=== PATIENT | male | born 1945 | race Caucasian/White ===

== ENCOUNTER → 2017-07-13 | Outpatient (CLI) | payer MEDICARE, BC ==
[~2017-07-13] VITALS: Ht 167.6 cm; Wt 81.4 kg
[~2017-07-13] MED LIST: ALPR.5 PO; ALTA5CAP4 PO; ASPI-516 PO; CARV12.5 PO; CENTCHW4 PO; CHLORHEXIDINE GLUCONATE 2 % 1 PACK (2 CLOTHS) TOPICAL PRN; CLON0.1T PO; DEXTROSE 5%-LACTATED RING INJ 1,000 ML IV SCH; DONE5TAB7 PO; EZET10 PO; FURO1TAB60 PO; INSULIN HUMAN REGULAR 1,000 UNITS/10 ML VIAL SQ PRN; LACTATED RINGER'S 1000 ML IV PRN; METOPROLOL TARTRATE 25 MG TAB PO PRN; MIRA50TA PO; OXYC1SOL5 PO; POVIDONE IODINE 5% (ANTISEPSIS KIT) 4 APPLICATIONS EACH NARE PRN; PRAV10TA PO; PRIL20TA2 PO; RESP: ALBUTEROL 2.5 MG/3 ML NEB (PRN) ONE; SODIUM CHLORID 0.9% 500 ML IV PRN; SPIR25 PO; ZANT150T2 PO
--- NOTE | 2017-07-13 11:30 | GIPROC ---
[facility] [address] [facility]. [facility], [address] EGD PROCEDURE REPORT EXAM DATE: 07/13/2017 PATIENT NAME: William Coats MR #: [id number] BIRTHDATE: 1945 ATTENDING: Danna Anton MD ORDER #: [id number] POLITICAL ORGANIZER: J Carlos See and Cristina Guido STATUS: outpatient INDICATIONS: The patient is a 72 yr old male here for an EGD due to diarrhea, dyspepsia PROCEDURE PERFORMED: EGD w/ biopsy MEDICATIONS: None and Per Anesthesia. TOPICAL ANESTHETIC: none CONSENT: The patient understands the risks and benefits of the procedure and understands that these risks include, but are not limited to: sedation, allergic reaction, infection, perforation and/or bleeding. Alternative means of evaluation and treatment include, among others: physical exam, x-rays, and/or surgical intervention. The patient elects to proceed with this endoscopic procedure. medical equipment was checked for proper function. Hand hygiene and appropriate measures for infection prevention was taken. After the risks, benefits and alternatives of the procedure were thoroughly explained, Informed consent was verified, confirmed and timeout was successfully executed by the treatment team. The patient was anesthetized with topical anesthesia and the EC-3490Li (Pedi C) endoscope was introduced through the mouth and advanced to the second portion of the duodenum. Retroflexed views revealed a hiatal hernia The gastroscope was then slowly withdrawn and removed. Duodenum normal-biopsy gastrtis antrum-biopsy esophagitis dital esophagus-biopsy. ADVERSE EVENTS: There were no complications. IMPRESSIONS: 1. Duodenum normal-biopsy gastrtis antrum-biopsy esophagitis dital esophagus-biopsy 2. Retroflexed views revealed a hiatal hernia RECOMMENDATIONS: 1. Anti-reflux regimen 2. Avoid NSAIDS 3. Await biopsy results. Biopsy results will not be ready for 7-10 days. If you don't hear from us in two weeks, call our office for biopsy results. PATIENT CONDITION: stable DISPOSITION: Home REPEAT EXAM: Return 3 years EGD Danna Anton MD eSigned: Danna Anton MD 07/13/2017 11:30 AM cc: Washington Ritter M.D.
--- NOTE | 2017-07-13 11:33 | GIPROC ---
[facility] [address] [facility]. [facility], [address] COLONOSCOPY PROCEDURE REPORT EXAM DATE: 07/13/2017 PATIENT NAME: William Coats MR #: [id number] BIRTHDATE: 1945 ENDOSCOPIST: Danna Anton MD ORDER #: [id number] DIRECTOR OF QUALITY CONTROL: J Carlos See and Cristina Guido STATUS: outpatient INDICATIONS: The patient is a 72 yr old male here for a colonoscopy due to diarrhea, dyspepsia PROCEDURE PERFORMED: Colonoscopy with biopsy MEDICATIONS: None and Per Anesthesia. PREP QUALITY: fair PREP TYPE:Other: ESTIMATED BLOOD LOSS: None CONSENT: The patient understands the risks and benefits of the procedure and understands that these risks include, but are not limited to: sedation, allergic reaction, infection, perforation and/or bleeding. Alternative means of evaluation and treatment include, among others: physical exam, x-rays, and/or surgical intervention. The patient elects to proceed with this endoscopic procedure. medical equipment was checked for proper function. Hand hygiene and appropriate measures for infection prevention was taken. After the risks, benefits and alternatives of the procedure were thoroughly explained, Informed consent was verified, confirmed and timeout was successfully executed by the treatment team. A digital exam revealed external hemorrhoids The Pentax EC-3490Li endoscope was introduced through the anus and advanced to the cecum, which was identified by both the appendix and ileocecal valve. The instrument was then slowly withdrawn as the colon was fully examined. COLON FINDINGS: Diverticulosis sigmoid, descending random biopsy ascending, descending r/o microscopi colitis internal hemorrhoids radiation proctitis diminutive polyp in ascending-cold biopsy with complete removal. Retroflexed views revealed internal hemorrhoids and Retroflexed views revealed medium internal hemorrhoids The scope was then completely withdrawn from the patient and the procedure terminated. PROCEDURE WITHDRAWAL TIME:9minutes ADVERSE EVENTS: There were no complications. IMPRESSIONS: 1. Diverticulosis sigmoid, descending random biopsy ascending, descending r/o microscopi colitis internal hemorrhoids radiation proctitis diminutive polyp in ascending-cold biopsy with complete removal 2. Retroflexed views revealed internal hemorrhoids 3. Retroflexed views revealed medium internal hemorrhoids 4. Revealed external hemorrhoids RECOMMENDATIONS: 1. Await biopsy results. Biopsy results will not be ready for 7-10 days. If you don't hear from us in two weeks, call our office for results. 2. Benefiber 2 tsp daily 3. Probiotics from any [employer] or health food store 4. Yearly rectal exams RECALL: Return 5 years Colonoscopy Danna Anton MD eSigned: Danna Anton MD 07/13/2017 11:33 AM cc: Washington Ritter M.D. PATIENT NAME: William Coats MR#: [id number]
[2017-07-13 12:10] VITALS: BP 173/79; PULSE 73; RESP 18; TEMP 97.1; O2SAT 99
--- NOTE | 2017-07-13 16:23 | EKG ---
Date Performed: 07/13/2017 Time Performed: 08:27:11 PTAGE: 72 years EKG: Sinus rhythm LEFT VENTRICULAR HYPERTROPHY AND ST-T CHANGE ABNORMAL ECG Since PREVIOUS TRACING , no significant change noted PREVIOUS TRACIN01/30/2012 11.13 DOCTOR: Charles Valderrama Interpretating Date/Time 07/13/2017 16:21:36
== END ==
LOC: HSDC 07:51
PROVIDERS: ATTEND Internal Medicine Gastroenterology
DX: K52.9 Noninfective gastroenteritis and colitis, unspecified (principal); K64.4 Residual hemorrhoidal skin tags; K64.8 Other hemorrhoids; K62.7 Radiation proctitis; K57.30 Diverticulosis of large intestine without perforation or abscess without bleeding; K44.9 Diaphragmatic hernia without obstruction or gangrene; K29.70 Gastritis, unspecified, without bleeding; K20.9 Esophagitis, unspecified; R19.7 Diarrhea, unspecified; R14.0 Abdominal distension (gaseous); J84.10 Pulmonary fibrosis, unspecified; R94.31 Abnormal electrocardiogram [ECG] [EKG]; Z99.81 Dependence on supplemental oxygen
CPT/HCPCS: 00810; 43239; 45380; 88305; 88312; 93005; 94664; J7120; J7613